=== PATIENT | male | born 1960 | race Caucasian/White ===

== ENCOUNTER → 2017-11-30 | Outpatient (CLI) | payer BC, OTHER ==
[~2017-11-30] MED LIST: RECEIVED CONTRAST (Hold Metformin) IV SCH
[2017-11-30 10:15] LABS: BUN/CREATININE RATIO 16; CREATININE SERUM 0.89 MG/DL (0.60-1.30); GFR ESTIMATED > 60
[2017-11-30] MEDS: CATHETER FLUSH 10 ML SYR IV PRN (10:37)
[2017-11-30] MEDS: NS 250 ML (IVPB) BAG IV ONE (10:37)
[2017-11-30] MEDS: IOHEXOL 350 MG/ML 150 ML (OMNIPAQUE 350) VIAL IV ONE (10:37)
--- NOTE | 2017-11-30 11:41 | Diagnostic Imaging Report ---
PROCEDURE: CT angiography of the abdomen and chest with and without contrast. TECHNIQUE: After intravenous administration of contrast, thin section axial CT angiography of the abdomen and chest were obtained. Multiple MIP reformats were provided. INDICATION: Anterior chest wall pain, hypertension and bradycardia. COMPARISON: No prior CT chest study is available for comparison. CT ANGIOGRAM CHEST: The thoracic aorta is normal caliber. No aneurysm is seen. No dissection is identified. The pulmonary arterial system is without thromboembolism. No filling defects are seen. No pericardial or pleural fluid is identified. No axillary, hilar or mediastinal lymphadenopathy is identified. There is a 5 mm nodule in the right middle lobe, nonspecific. Remainder of the lung ritter appear to be fairly clear apart from a tiny subpleural nodule 4 mm. There is also a 5 mm subpleural nodule in the lingula. IMPRESSION: 1. No evidence of thoracic aortic aneurysm or dissection. No pulmonary embolism is seen. 2. Small nonspecific pulmonary nodules. Followup CT chest in 4-6 months is recommended to confirm stability. CT ANGIOGRAM ABDOMEN: The liver demonstrates generalized low density consistent with hepatic steatosis. No discrete liver mass is identified. The pancreas and spleen are unremarkable. No adrenal masses detected. There are hyperdensities within both kidneys, suggestive of nonobstructing calculi. No hydronephrosis is seen. Aorta is non-aneurysmal. No aortic dissection is seen. There is no central retroperitoneal or mesenteric lymphadenopathy. The small and large bowel loops are normal caliber. There is no ascites. IMPRESSION: 1. Hepatic steatosis. 2. Nonobstructing bilateral nephrolithiasis. 3. No evidence of abdominal aortic aneurysm or dissection. Dictated by: Dictated on workstation # [id number]
== END ==
LOC: RAD 09:40
PROVIDERS: ATTEND Physician Assistant
DX: R91.8 Other nonspecific abnormal finding of lung field (principal); K76.0 Fatty (change of) liver, not elsewhere classified; N20.0 Calculus of kidney; I10 Essential (primary) hypertension; G47.33 Obstructive sleep apnea (adult) (pediatric); E66.01 Morbid (severe) obesity due to excess calories; R00.1 Bradycardia, unspecified; R07.89 Other chest pain
CPT/HCPCS: 36415; 71275; 74175; 82565; 84520

== ENCOUNTER 2018-03-22 11:56 | Day surgery (SDC) | payer BC ==
[~2018-03-22] VITALS: Ht 182.9 cm; Wt 149.3 kg
[2018-03-22] VITALS (8 sets, daily range): BP systolic 132–179; BP diastolic 79–110
[2018-03-22] MEDS ORDERED: NITROGLYCERIN 0.4 MG SL TABS BTL 25'S SL ONE (12:05)
[2018-03-22] MEDS ORDERED: ASPIRIN 81 MG CHEW (CHILDREN'S ASA) ONE (12:05)
[2018-03-22 12:26] LABS: BASOPHILS % (AUTO) 0 % (0-10); EOSINOPHILS # (AUTO) 0.2 10^3/uL (0.0-0.3); EOSINOPHILS % (AUTO) 2 % (0-10); HEMATOCRIT 42 % (40-54); HEMOGLOBIN 14.6 G/DL (13.3-17.7); LYMPHOCYTES # (AUTO) 2.7 X 10^3 (1.0-4.0); LYMPHOCYTES % (AUTO) 31 % (12-44); MEAN CORPUSCULAR HEMOGLOBIN 30 PG (25-34); MEAN CORPUSCULAR HGB CONC 34 G/DL (32-36); MEAN CORPUSCULAR VOLUME 88 FL (80-99); MEAN PLATELET VOLUME 9.8 FL (7.4-10.4); MONOCYTES # (AUTO) 0.6 X 10^3 (0.0-1.0); MONOCYTES % (AUTO) 7 % (0-12); NEUTROPHILS # (AUTO) 5.3 X 10^3 (1.8-7.8); NEUTROPHILS % (AUTO) 60 % (42-75); PLATELET COUNT 279 10^3/uL (130-400); RED BLOOD COUNT 4.84 10^6/uL (4.35-5.85); RED CELL DISTRIBUTION WIDTH 13.4 % (10.0-14.5); WHITE BLOOD COUNT 8.7 10^3/uL (4.3-11.0)
[2018-03-22] MEDS ORDERED: ASPIRIN 81 MG CHEW (CHILDREN'S ASA) PO ONE (12:30)
[2018-03-22] MEDS ORDERED: NITROGLYCERIN 0.4 MG SL TABS BTL 25'S SL PRN ×2 (12:30→16:30)
[2018-03-22 12:42] LABS: PROTHROMBIN TIME PATIENT 13.1 SEC (12.2-14.7)
[2018-03-22 12:49] LABS: ALANINE AMINOTRANSFERASE 29 U/L (0-55); ALBUMIN 4.5 GM/DL (3.2-4.5); ALKALINE PHOSPHATASE 59 U/L (40-136); BILIRUBIN,TOTAL 0.5 MG/DL (0.1-1.0); BUN/CREATININE RATIO 14; CALCIUM 10.3 MG/DL (8.5-10.1); CARBON DIOXIDE 26 MMOL/L (21-32); CHLORIDE 104 MMOL/L (98-107); CREATININE SERUM 1.08 MG/DL (0.60-1.30); GFR ESTIMATED > 60; GLUCOSE 100 MG/DL (70-105); MAGNESIUM 2.3 MG/DL (1.8-2.4); POTASSIUM 3.7 MMOL/L (3.6-5.0); SODIUM 140 MMOL/L (135-145); TOTAL PROTEIN 7.9 GM/DL (6.4-8.2)
[2018-03-22 12:57] LABS: MYOGLOBIN SERUM 66.5 NG/ML (10.0-92.0)
--- NOTE | 2018-03-22 13:04 | Diagnostic Imaging Report ---
INDICATION: Chest pain and diaphoresis with shortness of breath. COMPARISON: No prior studies are available for comparison. FINDINGS: The heart size is normal. The pulmonary vascularity is unremarkable. The lungs are clear. No infiltrate, effusion or pneumothorax is detected. IMPRESSION: No acute cardiopulmonary process is detected. Dictated by: Dictated on workstation # [id number]
--- NOTE | 2018-03-22 13:10 | ED Chest Pain ---
General Chief Complaint: Chest Pain Stated Complaint: CHEST PAIN Nursing Triage Note: Pt arrives to the ED Room #4 c/o chest pain. Pt is diaphoretic and SOB. Pt states that the pain feels like "someone punched me straight in the heart, its tight pressure". Pt states that he had pain this morning at 0900 and took a baby aspirin. Nursing Sepsis Screen: No Definite Risk Source: patient, old records Exam Limitations: no limitations History of Present Illness Date Seen by Provider: Mar 22, 2018 Time Seen by Provider: 12:07 Initial Comments This 57-year-old gentleman presents to the emergency room with complaints of chest pain in the left central chest that started around 09:00. 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 He had been carrying a ladder on some stairs and climbing up and down a ladder. Pain became severe between 11:00 and 11:30. He became intensely diaphoretic at that time. He rated his pain as 6/10 at its worst. It was 2/10 at the time of assessment. Pain improved with rest. He took aspirin 81 mg prior to arrival. He complained of some slight blurry vision and swelling in his ears as well. He denies any change in pain with deep inspiration. He has no known history of coronary artery disease but does have a strong family history. He has had at least 3 first-degree relatives of heart disease around age 60. He has a remote smoking history. He is also obese and hypertensive. He has sleep apnea. Patient had a CT angiogram performed November 30. Pulmonary nodules were noted and a 4-6 month follow-up was recommended. Dr. Yanez is his primary social media community manager. Dr. Estrada previously had planned to do a stress test but patient did not follow through because of loss of insurance. Allergies and Home Medications Allergies Coded Allergies: No Allergy Information Available (Unverified , 11/30/17) Patient Home Medication List Home Medication List Reviewed: Yes Review of Systems Review of Systems Constitutional: diaphoresis EENTM: See HPI Respiratory: No Symptoms Reported Cardiovascular: See HPI Gastrointestinal: No Symptoms Reported Genitourinary: No Symptoms Reported Musculoskeletal: no symptoms reported Skin: no symptoms reported Psychiatric/Neurological: No Symptoms Reported Endocrine: No Symptoms Reported Hematologic/Lymphatic: No Symptoms Reported Past Qajshze-Rdxidb-Hypkni Hx Patient Social History Alcohol Use: Denies Use Recreational Drug Use: No Smoking Status: Former Smoker Type Used: Cigarettes 2nd Hand Smoke Exposure: No Recent Foreign Travel: No Contact w/Someone Who Travel: No Recent Infectious Disease Expo: No Recent Hopitalizations: No Physical Abuse: No Sexual Abuse: No Mistreated: No Fear: No Seasonal Allergies Seasonal Allergies: No Past Medical History Surgeries: No Respiratory: No Cardiac: Yes Hypertension Neurological: No Genitourinary: No Gastrointestinal: No Musculoskeletal: No Endocrine: No HEENT: No Cancer: No Psychosocial: No Integumentary: No Blood Disorders: No Family Medical History Reviewed and Corrections made Heart Disease, CAD Over 55 Years Old Physical Exam Vital Signs Vital Signs - First Documented Capillary Refill : Less Than 3 Seconds Height, Weight, BMI Height: 6'" Weight: 226lbs. oz. 102.400555zw; BMI Method:Stated General Appearance: No Apparent Distress, WD/WN, Obese HEENT: PERRL/EOMI, Normal ENT Inspection Neck: Normal Inspection Respiratory: Lungs Clear, Normal Breath Sounds, No Accessory Muscle Use, No Respiratory Distress, Other (chest slightly tender just to the left of the lower sternum) Cardiovascular: Regular Rate, Rhythm, No Murmur, Other (slight pedal edema) Gastrointestinal: Normal Bowel Sounds, Non Tender, Soft Extremity: Normal Capillary Refill, Non Tender, No Calf Tenderness, Pedal Edema (slight), Other (negative home and) Neurologic/Psychiatric: Alert, Oriented x3, No Motor/Sensory Deficits, Normal Mood/Affect, trustee of estate II-XII Norm as Tested Skin: Normal Color, Diaphoresis Progress/Results/Core Measures Results/Orders Lab Results Laboratory Tests Test 03/22/18 12:10 Range/Units White Blood Count 8.7 4.3-11.0 10^3/uL Red Blood Count 4.84 4.35-5.85 10^6/uL Hemoglobin 14.6 13.3-17.7 G/DL Hematocrit 42 40-54 % Mean Corpuscular Volume 88 80-99 FL Mean Corpuscular Hemoglobin 30 25-34 PG Mean Corpuscular Hemoglobin Concent 34 32-36 G/DL Red Cell Distribution Width 13.4 10.0-14.5 % Platelet Count 279 130-400 10^3/uL Mean Platelet Volume 9.8 7.4-10.4 FL Neutrophils (%) (Auto) 60 42-75 % Lymphocytes (%) (Auto) 31 12-44 % Monocytes (%) (Auto) 7 0-12 % Eosinophils (%) (Auto) 2 0-10 % Basophils (%) (Auto) 0 0-10 % Neutrophils # (Auto) 5.3 1.8-7.8 X 10^3 Lymphocytes # (Auto) 2.7 1.0-4.0 X 10^3 Monocytes # (Auto) 0.6 0.0-1.0 X 10^3 Eosinophils # (Auto) 0.2 0.0-0.3 10^3/uL Basophils # (Auto) 0.0 0.0-0.1 10^3/uL Prothrombin Time 13.1 12.2-14.7 SEC INR Comment 1.0 0.8-1.4 Activated Partial Thromboplast Time 28 24-35 SEC D-Dimer 0.53 H 0.00-0.49 UG/ML Sodium Level 140 135-145 MMOL/L Potassium Level 3.7 3.6-5.0 MMOL/L Chloride Level 104 98-107 MMOL/L Carbon Dioxide Level 26 21-32 MMOL/L Anion Gap 10 5-14 MMOL/L Blood Urea Nitrogen 15 7-18 MG/DL Creatinine 1.08 0.60-1.30 MG/DL Estimat Glomerular Filtration Rate > 60 BUN/Creatinine Ratio 14 Glucose Level 100 70-105 MG/DL Calcium Level 10.3 H 8.5-10.1 MG/DL Corrected Calcium 9.9 8.5-10.1 MG/DL Magnesium Level 2.3 1.8-2.4 MG/DL Total Bilirubin 0.5 0.1-1.0 MG/DL Aspartate Amino Transf (AST/SGOT) 20 5-34 U/L Alanine Aminotransferase (ALT/SGPT) 29 0-55 U/L Alkaline Phosphatase 59 40-136 U/L Myoglobin 66.5 10.0-92.0 NG/ML Troponin I < 0.30 <0.30 NG/ML Total Protein 7.9 6.4-8.2 GM/DL Albumin 4.5 3.2-4.5 GM/DL My Orders Orders - MENA GARG MD Nitroglycerin 0.4 Mg Btl 25's (Nitrostat (03/22/18 12:05) Aspirin Chewable Tablet (Baby Aspirin Ch (03/22/18 12:05) Cbc With Automated Diff (03/22/18 12:17) Magnesium (03/22/18 12:17) Ekg Tracing (03/22/18 12:17) Cardiac Profile 1 (03/22/18 12:17) Comprehensive Metabolic Panel (03/22/18 12:17) Myoglobin Serum (03/22/18 12:17) Protime With Inr (03/22/18 12:17) Partial Thromboplastin Time (03/22/18 12:17) O2 (03/22/18 12:17) Monitor-Rhythm Ecg Trace Only (03/22/18 12:17) Lipid Panel (03/23/18 06:00) Aspirin Chewable Tablet (Baby Aspirin Ch (03/22/18 12:30) Nitroglycerin 0.4 Mg Btl 25's (Nitrostat (03/22/18 12:30) Saline Lock/Iv-Start (03/22/18 12:17) Chest Pa/Lat (2 View) (03/22/18 12:17) Fibrin Degradation Products (03/22/18 13:21) Ct Angio Chest W (03/22/18 13:57) Iohexol Injection (Omnipaque 350 Mg/Ml 1 (03/22/18 14:00) Ns (Ivpb) (Sodium Chloride 0.9%) (03/22/18 14:00) Pharmacy Communication (Pharmacy Communi (03/22/18 13:59) Medications Given in ED Current Medications Medications Dose Ordered Sig/Ever Route Start Time Stop Time Status Last Admin Dose Admin Aspirin 243 mg ONCE ONCE PO 03/22/18 12:30 03/22/18 12:31 DC 03/22/18 12:10 243 MG Iohexol 150 ml ONCE ONCE IV 03/22/18 14:00 03/22/18 14:02 DC 03/22/18 14:04 130 ML Sodium Chloride 250 ml ONCE ONCE IV 03/22/18 14:00 03/22/18 14:02 DC 03/22/18 14:04 80 ML Vital Signs/I&O 03/22/18 03/22/18 03/22/18 11:57 11:57 11:57 Temp 98.4 Pulse 86 Resp 20 B/P (MAP) 154/92 (112) Pulse Ox 94 96 O2 Delivery Room Air Nasal Cannula Room Air O2 Flow Rate 3.0 3.00 Blood Pressure Mean: 112 Progress Progress Note #1: Time: 13:28 Progress Note Patient reported improvement in chest pain with nitroglycerin. When he got up to the wheelchair to go to radiology, the chest pain intensified again. He received a second nitroglycerin and chest pain improved again. He has been rating his pain around 1-2/10. Dr. Henderson presented to the emergency room to assess the patient. He agrees with admission. If troponin remains negative and chest pain control, stress test will be arranged as an outpatient. If chest pain is uncontrolled or troponin is positive, cardiac catheterization will be arranged. He requested a d-dimer which is pending. Progress Note #2: Time: 14:51 Progress Note D-dimer was slightly elevated. CT angiogram was ordered and results were negative. Pulmonary nodules are stable. Initial ECG Impression Date: Mar 22, 2018 Initial ECG Impression Time: 11:59 Initial ECG Rate: 82 Initial ECG Rhythm: Normal Sinus Initial ECG Intervals: Normal Comment Normal sinus rhythm with no ST elevation or depression. No abnormal intervals or axis deviation. Diagnostic Imaging Diagonstic Imaging: Xray Plain Films/CT/US/NM/MRI: chest Comments Chest x-ray viewed by me and report reviewed. See report below: NAME: ANGIE MUELLER [facility] REC#: [id number] PT STATUS: REG ER : 1960 PHYSICIAN: MENA GARG MD ADMIT DATE: 03/22/18/ER Draft Date of Exam:03/22/18 CHEST PA/LAT (2 VIEW) INDICATION: Chest pain and diaphoresis with shortness of breath. COMPARISON: No prior studies are available for comparison. FINDINGS: The heart size is normal. The pulmonary vascularity is unremarkable. The lungs are clear. No infiltrate, effusion or pneumothorax is detected. IMPRESSION: No acute cardiopulmonary process is detected. Dictated on workstation # [id number] Dict: 03/22/18 1302 Trans: 03/22/18 1303 [facility] [id number] Interpreted by: MELLISSA SORIANO MD Departure Communication (Admissions) Time/Spoke to Admitting Phy: 14:47 Dr. Ty Time/Spoke to Consulting Phy: 13:15 Dr. Henderson Impression Primary Impression: Chest pain Qualified Codes: R07.9 - Chest pain, unspecified Additional Impressions: Hypertension Qualified Codes: I10 - Essential (primary) hypertension Pulmonary nodules Disposition: ADMITTED INPATIENT Condition: Improved Admissions Decision to Admit Reason: Admit from ER (General) Decision to Admit/Date: Mar 22, 2018 Time/Decision to Admit Time: 12:15 Departure-Patient Inst. Referrals: FRANCIS PERRY (PCP/Family) Primary Care Physician MENA GARG MD Mar 22, 2018 13:10
[2018-03-22] MEDS ORDERED: IOHEXOL 350 MG/ML 150 ML (OMNIPAQUE 350) VIAL IV ONE (14:00)
[2018-03-22] MEDS ORDERED: NS 250 ML (IVPB) BAG IV ONE (14:00)
--- NOTE | 2018-03-22 14:31 | Diagnostic Imaging Report ---
PROCEDURE: CT angiography of the chest with contrast. TECHNIQUE: Multiple contiguous axial images were obtained through the chest after uneventful bolus administration of intravenous contrast. Reconstructed CTA MIP acquisitions were also performed. INDICATION: Chest pain. Comparison is made with prior CT angiogram of the chest from 11/30/2017. Evaluation of the pulmonary arterial system is without evidence of thromboembolism. No filling defects are seen within central, lobar or segmental branches. The thoracic aorta is normal caliber. No dissection is seen. No pericardial or pleural fluid is identified. No axillary lymphadenopathy is seen. No mediastinal or hilar lymphadenopathy is detected. A 4 mm nodule right upper lobe is stable when compared to prior exam. Subpleural nodule in the lingula is also stable measuring 6 mm. No infiltrates are seen. Upper abdomen demonstrates hepatic steatosis. IMPRESSION: 1. No evidence of pulmonary embolism or thoracic aortic dissection. 2. Stable bilateral pulmonary nodules. Additional followup in 6 months is recommended. 3. Hepatic steatosis. Dictated by: Dictated on workstation # [id number]
--- NOTE | 2018-03-22 15:15 | Consultation-Cardiology ---
HPI-Cardiology Cardiology Consultation: Date of Consultation 03/22/18 Date of Admission Attending Physician Admitting Physician Jade Murcia Consulting Physician Zohreh HENDERSON MD HPI: Time Seen by Provider: 13:00 Chief Complaint: Chest pain This is a 57 year old male patient who previously followed with Dr Estrada. Apparently Dr Estrada wanted to perform stress test but patient could not follow up due to no insurance. He presents with severe chest pain 10/10 this morning which lasted for a couple of hours and improved with two NTG. CP is substernal with no shortness of breath. Patient denies DM, active smoking but has HTN, lipids and family h/o premature CAD. He is also obese and has JEMAL. No radiation , worse with exertion. Review of Systems-Cardiology Review of Systems Constitutional: As described under HPI; No As described under HPI, No no symptoms reported, No chills, No fever, No lightheadedness Eyes: No As described under HPI, No no symptoms reported, No blindness, No blurred vision, No contact lenses, No drainage, No decreased acuity, No foreign body sensation, No pain, No vision change Ears/Nose/Throat: No As described under HPI, No no symptoms reported, No chronic hearing loss, No ear discharge, No ear pain, No nasal drainage, No ulcerations Respiratory: No no symptoms reported; As described under HPI; No As described under HPI, No cough, No orthopnea, No shortness of breath, No SOB with excertion Cardiovascular: No no symptoms reported; As described under HPI; No As described under HPI; chest pain; No edema, No irregular heart rate, No lightheadedness, No palpitations Gastrointestinal: No no symptoms reported, No As described under HPI, No abdomen distended, No abdominal pain, No blood streaked bowels, No constipation , No diarrhea, No nausea, No vomiting, No stool coloration changes Genitourinary: No As described under HPI, No burning, No dysuria, No discharge , No frequency, No flank pain, No hematuria, No urgency Skin: No rash, No skin related problems, No ulcerations Psychiatric/Neurological: No anxiety, No depression, No seizure, No focal weakness, No syncope Hematologic: No bleeding abnormalities XNA-Prdogx-Iglywb Hx Patient Social History Alcohol Use: Denies Use Recreational Drug Use: No Smoking Status: Former Smoker Type Used: Cigarettes 2nd Hand Smoke Exposure: No Recent Foreign Travel: No Recent Infectious Disease Expo: No Hospitalization with Isolation: Denies Past Medical History PMH As described under Assessment. Allergies and Home Medications Allergies Coded Allergies: No Allergy Information Available (Unverified , 11/30/17) Patient Home Medication List Home Medication List Reviewed: Yes Physical Exam-Cardiology Physical Exam Vital Signs/I&O 03/22/18 03/22/18 03/22/18 11:57 11:57 11:57 Temp 98.4 Pulse 86 Resp 20 B/P (MAP) 154/92 (112) Pulse Ox 94 96 O2 Delivery Room Air Nasal Cannula Room Air O2 Flow Rate 3.0 3.00 Capillary Refill : Less Than 3 Seconds Constitutional: appears stated age, AAO x 3; No apparent distress; well- developed, well-nourished HEENT: PERRL; No normal ENT inspection, No TMs normal, No pharynx normal, No scleral icterus (R), No scleral icterus (L), No pale conjunctivae (R), No pale conjunctivae (L), No photophobia, No TM abnormal (R), No TM abnormal (L), No pharyngeal erythema, No tonsillar exudate, No other, No discharge, No EOMI; hearing is well preserved; No hard of hearing; oral hygience is good; No ulceration, No xanthelasmas are seen Neck: No non-tender, No full range of motion, No supple, No normal inspection, No carotid bruit, No limited range of motion, No lymphadenopathy (R), No lymphadenopathy (L), No tender lateral, No tender midline, No thyromegaly, No other; carotid pulses are 2 + bilaterally; No with good upstrokes Respiratory: No accessory muscle use, No respiratory distress, No chest tender , No chest expansion is symmetric; chest is bilaterally symmetric; No lungs clear to percussion; lungs clear to auscultation; No crackles, No rhonchi, No rales, No stridor, No wheezing, No pleural rub, No other Cardiovascular: regular rate-rhythm; No irregularly irregular, No extra beats, No parasternal heave is noted, No JVD, No edema, No bradycardia, No tachycardia , No point of maximal impulse, No cardiac thrills are palpable; S1 and S2; No gallop/S3, No gallop/S4, No diastolic murmur, No systolic murmur, No friction rub, No click, No other Gastrointestinal: No tender, No soft, No round, No distended, No pulsatile mass , No organomegaly, No guarding, No rebound, No tenderness, No hernia, No mass, No audible bowel sounds, No abnormal bowel sounds, No abdominal bruits, No spleenomegaly, No other Rectal: deferred Extremities: No normal range of motion, No non-tender, No normal inspection, No pedal edema, No calf tenderness, No normal capillary refill, No pelvis stable , No calf tenderness, No inflammation, No pedal edema, No slow capillary refill , No swelling, No other, No abrasion, No clubbing, No cyanosis, No ecchymosis, No laceration, No no lower extremity edema bilateral, No significant edema, No tenderness, No wound Neurologic/Psychiatric: no motor/sensory deficits, alert, normal mood/affect, oriented x 3, power is 5/5 both on sides Skin: No normal color, No warm/dry, No cyanosis, No cool, No diaphoresis, No damp, No ecchymosis, No jaundice, No mottled, No pallor, No rash, No tattoos/ piercings, No ulcerations, No rash on exposed areas, No ulcerations on exposed areas, No other Data Review Labs Laboratory Tests 03/22/18 12:10: White Blood Count 8.7, Red Blood Count 4.84, Hemoglobin 14.6, Hematocrit 42, Mean Corpuscular Volume 88, Mean Corpuscular Hemoglobin 30, Mean Corpuscular Hemoglobin Concent 34, Red Cell Distribution Width 13.4, Platelet Count 279, Mean Platelet Volume 9.8, Neutrophils (%) (Auto) 60, Lymphocytes (%) (Auto) 31, Monocytes (%) (Auto) 7, Eosinophils (%) (Auto) 2, Basophils (%) (Auto) 0, Neutrophils # (Auto) 5.3, Lymphocytes # (Auto) 2.7, Monocytes # (Auto) 0.6, Eosinophils # (Auto) 0.2, Basophils # (Auto) 0.0, Prothrombin Time 13.1, INR Comment 1.0, Activated Partial Thromboplast Time 28, D-Dimer 0.53H, Sodium Level 140, Potassium Level 3.7, Chloride Level 104, Carbon Dioxide Level 26, Anion Gap 10, Blood Urea Nitrogen 15, Creatinine 1.08, Estimat Glomerular Filtration Rate > 60, BUN/Creatinine Ratio 14, Glucose Level 100, Calcium Level 10.3H, Corrected Calcium 9.9, Magnesium Level 2.3, Total Bilirubin 0.5, Aspartate Amino Transf (AST/SGOT) 20, Alanine Aminotransferase (ALT/SGPT) 29, Alkaline Phosphatase 59, Myoglobin 66.5, Troponin I < 0.30, Total Protein 7.9, Albumin 4.5 ECG Impression ECG Initial ECG Rhythm: Normal Sinus Initial ECG Impression: Normal A/P-Cardiology Assessment/Admission Diagnosis Chest pain, Positive D dimer, Pulmonary nodule Plan Chest pain - serial troponin. EKG does not show any major ST-T wave abnormalities. Significant improvement with NTG. If patient develops recurrent CP, Cath will be recommended. Otherwise, if serial trop negative, he will be dced to follow up with Dr Estrada for early Nuclear stress test. I will perform Echocardiogram. Positive DDimer- CTA negative. Pulmonary nodule - Follow up with CT. Thank you for your consultation. Please call me if you have any questions. Jose Henderson MD, FACP, FACC, FSCAI, FHRS, CCDS Interventional Cardiology Cardiac Electrophysiology Vascular Medicine and Endovascular Interventions Clinical Quality Measures AMI/AHF: ASA po Prior to arrival: Yes (Pt took 81mg Baby Aspirin) Zohreh HENDERSON MD Mar 22, 2018 15:15
[2018-03-22] MEDS ORDERED: morphine INJ 10 MG/ML 1ML (SYR OR VIAL) IV PRN (16:30)
[2018-03-22] MEDS ORDERED: CATHETER FLUSH 10 ML SYR IV PRN (16:30)
--- NOTE | 2018-03-22 17:34 | History & Physical-Hospitalist ---
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 He began having right-sided chest pain associated with profuse diaphoresis and dizziness. The patient sat down and then decided to go to the emergency room. He was given a nitroglycerin which resolved the pain although the pain RE- occurred in about an hour. At the time of my interview he is without pain and has no complaints. He notes he has never had pain like this before. He does have a long-standing history of hypertension and has been followed by Dr. Yanez for that. Source: patient Exam Limitations: no limitations Date Seen 03/22/18 Time Seen by Provider: 17:30 Attending Physician Marichuy Ty MD PCP Jade Murcia Referring Physician Date of Admission Mar 22, 2018 at 15:08 Home Medications & Allergies Home Medications Reviewed patient Home Medication Reconciliation performed by pharmacy medication reconciliations security technician and/or nursing. Patients Allergies have been reviewed. Allergies Allergies Coded Allergies No Allergy Information Available (Unverified11/30/17) Past Stjteeg-Zshsdr-Nmebvz Hx Past Med/Social Hx: Reviewed Nursing Past Med/Soc Hx Patient Social History Marrital Status: Number of living children: 4 Employed/Student: employed Alcohol Use: Denies Use Recreational Drug Use: No Smoking Status: Former Smoker Former Smoker, Quit: Mar 22, 1994 Type Used: Cigarettes 2nd Hand Smoke Exposure: No Physical Abuse Screen: No Sexual Abuse: No Recent Foreign Travel: No Contact w/other who traveled: No Recent Hopitalizations: No Recent Infectious Disease Expo: No Immunizations Up To Date Pediatric: Yes Seasonal Allergies Seasonal Allergies: No Past Medical History Respiratory: Sleep Apnea Currently Using CPAP: Yes Currently Using BIPAP: No Cardiac: Hypertension Genitourinary: Kidney Stones History of Blood Disorders: No Family History Reviewed and Corrections made Myocardial infarction 19 FATHER ( of mi age 52) G8 BROTHER ( of mi 57) G8 SISTER ( OF ID AGE 62) G8 SISTER ( OF ID AT AGE 58) Neoplasm 19 MOTHER (pancreatic cancer) Heart Disease, CAD Over 55 Years Old Review of Systems Constitutional: see HPI EENTM: blurred vision Respiratory: no symptoms reported Cardiovascular: chest pain Gastrointestinal: no symptoms reported Genitourinary: no symptoms reported Musculoskeletal: no symptoms reported Skin: dryness Psychiatric/Neurological: No Symptoms Reported Physical Exam Physical Exam Vital Signs Vital Signs - First Documented Capillary Refill : Less Than 3 Seconds Height, Weight, BMI Height: 6'0.00" Weight: 329lbs. 1.9oz. 149.788304uv; 44.6 BMI Method:Stated General Appearance: No Apparent Distress, WD/WN, Obese HEENT: Normal ENT Inspection Neck: Normal Inspection, Non Tender, Limited Range of Motion, Other (Short with increased diameter) Respiratory: Chest Non Tender, Lungs Clear, Normal Breath Sounds, No Accessory Muscle Use, No Respiratory Distress Cardiovascular: Regular Rate, Rhythm, No Edema, No Gallop, No JVD, No Murmur, Normal Peripheral Pulses Gastrointestinal: Normal Bowel Sounds, No Organomegaly, No Pulsatile Mass, Non Tender, Soft Rectal: Deferred Back: Normal Inspection, No CVA Tenderness, No Vertebral Tenderness Extremity: Normal Capillary Refill, Normal Inspection, Normal Range of Motion, Non Tender, No Calf Tenderness Neurologic/Psychiatric: Alert, Oriented x3, No Motor/Sensory Deficits, Normal Mood/Affect, medical claims representative II-XII Norm as Tested Skin: Normal Color, Warm/Dry Results Results/Procedures Labs Laboratory Tests 03/22/18 12:10 Patient resulted labs reviewed. Imaging: Reviewed Imaging Report Assessment/Plan Admission Diagnosis Chest pain in patient high risk for heart disease. Hypertension History nephrolithiasis Obstructive sleep apnea Morbid obesity with a BMI of 44 Pulmonary nodules stable since previous exam Low positive d-dimer Plan to not observe overnight continue aspirin check a fasting lipid profile and discharge with outpatient follow-up with Dr. Yanez Admission Status: Observation Clinical Quality Measures AMI/AHF: ASA po Prior to arrival: Yes (Pt took 81mg Baby Aspirin) DVT/VTE Risk/Contraindication: Risk Factor Score Per Nursin RFS Level Per Nursing on Admit: 2=Moderate Copy Copies To 1: NIURKA CHING MD, KATHLEEN M MD Mar 22, 2018 5:34 pm
[2018-03-22] MEDS ORDERED: AMLO10TA6 PO (17:53)
[2018-03-22] MEDS ORDERED: LOSA1TAB23 PO (17:53)
[2018-03-22] MEDS ORDERED: CARV12.53 PO (17:53)
[2018-03-22] MEDS ORDERED: ASPI-586 PO (17:56)
[2018-03-22] MEDS: CATHETER FLUSH 10 ML SYR IV SCH (21:27)
[2018-03-23] VITALS (13 sets, daily range): BP systolic 124–182; BP diastolic 67–92
[2018-03-23] MEDS: CATHETER FLUSH 10 ML SYR IV SCH ×3 (06:29→19:27)
[2018-03-23 06:57] LABS: CHOLESTEROL 183 MG/DL (< 200); HDL CHOLESTEROL 38 MG/DL (40-60); TRIGLYCERIDES 115 MG/DL (<150); VLDL CHOLESTEROL 23 MG/DL (5-40)
[2018-03-23] MEDS ORDERED: ASPIRIN E.C. 81 MG (ECOTRIN) TAB PO SCH (09:00)
[2018-03-23] MEDS ORDERED: PATIENT MAY USE OWN MEDS, ALL MC SCH (10:45)
--- NOTE | 2018-03-23 11:40 | Progress Note-Hospitalist ---
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 He began having right-sided chest pain associated with profuse diaphoresis and dizziness. The patient sat down and then decided to go to the emergency room. He was given a nitroglycerin which resolved the pain although the pain RE- occurred in about an hour. At the time of my interview he is without pain and has no complaints. He notes he has never had pain like this before. He does have a long-standing history of hypertension and has been followed by Dr. Yanez for that. Subjective/Events-last exam Patient had chest pain again overnight when he wasn't doing anything requiring nitroglycerin to get it to subside. Family history is again reviewed; his blood pressures going up this morning since he hadn't had some of his medications. Review of Systems Cardiovascular: Chest Pain Objective Exam Vital Signs Vital Signs Date Time Temp Pulse Resp B/P (MAP) Pulse Ox O2 Delivery O2 Flow Rate FiO2 03/23/18 08:00 98.1 55 20 168/91 (116) 96 Room Air 03/22/18 11:57 3.00 Capillary Refill : Less Than 3 Seconds General Appearance: No Apparent Distress HEENT: Normal ENT Inspection Neck: Normal Inspection, Non Tender, Supple, Other (Full) Respiratory: Chest Non Tender, Lungs Clear, Normal Breath Sounds, No Accessory Muscle Use, No Respiratory Distress Cardiovascular: Regular Rate, Rhythm, No Edema, No Gallop, No JVD, No Murmur, Normal Peripheral Pulses, Extra Beats Gastrointestinal: Normal Bowel Sounds, No Organomegaly, Non Tender, Soft Rectal: Deferred Back: Normal Inspection, No CVA Tenderness Extremity: Normal Capillary Refill, Normal Inspection, Normal Range of Motion, Non Tender, No Pedal Edema Neurologic/Psychiatric: Alert, Oriented x3, No Motor/Sensory Deficits, Normal Mood/Affect, bulk tank 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 Imaging: Reviewed Imaging Report Assessment/Plan Assessment and Plan Assess & Plan/Chief Complaint 1. Chest pain consistent with unstable angina-with the multiple risk factors this patient has discussed with who agrees with proceeding to heart catheter 2. Obstructive sleep apnea 3. Pulmonary nodules requiring follow-up Clinical Quality Measures AMI/AHF: ASA po Prior to arrival: Yes (Pt took 81mg Baby Aspirin) DVT/VTE Risk/Contraindication: Risk Factor Score Per Nursin RFS Level Per Nursing on Admit: 2=Moderate MATHEUS PERRY MD Mar 23, 2018 11:40 am
[2018-03-23] MEDS ORDERED: NS IV 1000 ML 1,000 ML ONE (12:21)
[2018-03-23] MEDS ORDERED: LIDOCAINE 1% INJ 20 ML 20 ML VIAL ONE (12:21)
[2018-03-23] MEDS ORDERED: NS IV 1000 ML 2,000 ML ONE (12:26)
[2018-03-23] MEDS ORDERED: HEParin 1000 UNIT/ML (10ML VIAL) FOR BOLUS ONE (12:26)
[2018-03-23] MEDS ORDERED: MIDAZOLAM 5 MG/5 ML (VERSED) VIAL ONE (12:35)
[2018-03-23] MEDS ORDERED: fentaNYL INJECTION 100 MCG/2 ML AMP ONE (12:35)
--- NOTE | 2018-03-23 13:05 | Cardiology Progress Note ---
Cardiology SOAP Progress Note Subjective: Chest pain overnight which resolve with nitroglycerin. Objective: I&O/Vital Signs 03/23/18 03/23/18 03/23/18 03:30 07:00 08:00 Temp 98.4 98.1 Pulse 55 60 55 Resp 18 20 B/P (MAP) 138/90 (106) 168/91 (116) Pulse Ox 95 96 O2 Delivery Room Air Room Air 03/23/18 00:00 Intake Total 590 ml Output Total 850 ml Balance -260 ml Weight (Pounds): 329 Weight (Ounces): 1.9 Weight (Calculated Kilograms): 149.984223 Constitutional: appears stated age, AAO x 3; No apparent distress; well- developed, well-nourished Respiratory: No accessory muscle use, No respiratory distress, No chest tender , No chest expansion is symmetric; chest is bilaterally symmetric; No lungs clear to percussion; lungs clear to auscultation; No crackles, No rhonchi, No rales, No stridor, No wheezing, No pleural rub, No other Cardiovascular: regular rate-rhythm; No irregularly irregular, No extra beats, No parasternal heave is noted, No JVD, No edema, No bradycardia, No tachycardia , No point of maximal impulse, No cardiac thrills are palpable; S1 and S2; No gallop/S3, No gallop/S4, No diastolic murmur, No systolic murmur, No friction rub, No click, No other Gastrointestional: No tender, No soft, No round, No distended, No pulsatile mass, No organomegaly, No guarding, No rebound, No tenderness, No hernia, No mass, No audible bowel sounds, No abnormal bowel sounds, No abdominal bruits, No spleenomegaly, No other Extremities: No normal range of motion, No non-tender, No normal inspection, No pedal edema, No calf tenderness, No normal capillary refill, No pelvis stable , No calf tenderness, No inflammation, No pedal edema, No slow capillary refill , No swelling, No other, No abrasion, No clubbing, No cyanosis, No ecchymosis, No laceration, No no lower extremity edema bilateral, No significant edema, No tenderness, No wound Neurologic/Psychiatric: no motor/sensory deficits, alert, normal mood/affect, oriented x 3, power is 5/5 both on sides Skin: No normal color, No warm/dry, No cyanosis, No cool, No diaphoresis, No damp, No ecchymosis, No jaundice, No mottled, No pallor, No rash, No tattoos/ piercings, No ulcerations, No rash on exposed areas, No ulcerations on exposed areas, No other Results/Procedures: Labs Laboratory Tests 03/22/18 18:05: Troponin I < 0.30 03/23/18 05:58: Triglycerides Level 115, Cholesterol Level 183, LDL Cholesterol Direct 134H, VLDL Cholesterol 23, HDL Cholesterol 38L A/P: Assessment/Dx: Unstable angina, Positive D dimer, Pulmonary nodule Plan: Unstable angina. Troponin 2 is negative. EKG does not show any significant ST -T wave abnormalities. Patient did have recurrent chest pain overnight which resolved with nitroglycerin. The patient does have significant family history. I have discussed at length with the patient and recommended coronary angiography. All the risks and complication were explained in detail including bleeding, vascular damage, PR, stroke and even . Patient accepted all the risks and complication and signed informed consent. Echocardiogram showed normal LV function. Positive DDimer- CTA negative. Pulmonary nodule - Follow up with CT. Thank you for your consultation. Please call me if you have any questions. Jose Henderson MD, FACP, FACC, FSCAI, FHRS, CCDS Interventional Cardiology Cardiac Electrophysiology Vascular Medicine and Endovascular Interventions Clinical Quality Measures AMI/AHF: ASA po Prior to arrival: Yes (Pt took 81mg Baby Aspirin) Zohreh HENDERSON MD Mar 23, 2018 1:05 pm
--- NOTE | 2018-03-23 13:06 | Cardiac Procedure Note-CS/ASA ---
Pre-Procedure Note Pre-Op Procedure Note H&P Reviewed The H&P was reviewed, patient examined and no changes noted. Date H&P Reviewed: Mar 23, 2018 Time H&P Reviewed: 13:06 Conscious Sedation Pre-Proced Time Reviewed: 13:06 ASA Class: 3 Airway Mallampati Classification: (tyonek appropriate class) I. II. III, IV Lungs Heart ASA score ASA 1: a normal healthy patient ASA 2: a patient with a mild systemic disease (mid diabetes, controlled hypertension, obesity ASA 3: a patient with a severe systemic disease that limits activity (angina , COPD, prior Myocardial infarction) ASA 4: a patient with an incapacitating disease that is a constant threat to life (CHF, renal failure) ASA 5: a moribund patient not expected to survive 24 hrs. (ruptured aneurysm) ASA 6: a declared brain patient whose organs are being harvested. For emergent operations, add the letter E after the classification Grade 1 Sedation Plan: Analgesia, Amnesia, Plan communicated to team members, Discussed options with patient/fam, Discussed risks with patient/fam Note The patient is an appropriate candidate to undergo the planned procedure, sedation, and anesthesia. The patient immediately re-assessed prior to indication. Zohreh DELGADILLO MD Mar 23, 2018 1:06 pm
[2018-03-23] MEDS ORDERED: VERAPAMIL 5 MG/2 ML (CALAN) VIAL IV ONE (13:08)
[2018-03-23] MEDS ORDERED: NITRO DRIP 25000 MCG/D5W 250 ML IV ONE (13:08)
[2018-03-23] MEDS ORDERED: PATIENT MAY USE OWN MEDS, ALL PO SCH (13:45)
--- NOTE | 2018-03-23 13:48 | Coronary Angiography Report ---
Coronary Angiography Report DATE OF PROCEDURE: 03/23/18 INDICATION: Unstable Angina, Recurrent chest pain on medical therapy. PREOPERATIVE DIAGNOSIS: Unstable Angina, Recurrent chest pain on medical therapy. POSTOPERATIVE DIAGNOSIS: Patent Epicardial coronary arteries, brief episodes of PAT/PAF. HISTORY: This is a 57 year old gentleman with morbid obesity and significant family history of premature CAD. He presented with prolonged chest pain. Troponin x2 negative, however, the patient had recurrent chest pain overnight which responded to NTG. Therefore, the patient was scheduled for coronary angiography. PROCEDURES PERFORMED: 1.Coronary angiography. 2.Left heart catheterization. 3. Aortic arch angiography. COMPLICATIONS: None. SPECIMENS: None. ESTIMATED BLOOD LOSS: 10 mL ANESTHESIA: Conscious sedation ANTICOAGULATION: IV heparin CONTRAST: 72cc. FLUOROSCOPY: 5 minutes. FLOUROSCOPY DOSE: 967 mgy. PROCEDURE DETAILS: The patient is a 57 male and was brought to the laborer steel handling after informed consent was taken. All the risks and complications were explained in detail; this included the risk of bleeding, vascular damage, stroke , [place] and even . The patient was draped and prepped in the usual sterile fashion. Access was gained in the right radial artery with a 6 [place] sheath. Coronary angiography and left heart catheterization was performed with the [place] catheter. Aortic arch angiography was performed with [place] catheter. FINDINGS: 1.Left main: Patent. 2.LAD: Patent. 3.Left circumflex artery: Patent. 4.RCA: Patent. 5.Left heart catheterization: LV 126/4mmhg, LVEDP 11mmhg, Ao 101/69mmhg. Normal LV fx with no wall motion abnormalities. No gradient across the aortic valve. 6. Aortic arch angiogram: No evidence of dissection or aneurysm. Patent proximal segments of the great arteries including brachiocephalic artery, common carotid artery, left subclavian artery. CONCLUSIONS: Patent epicardial coronary arteries. Normal LV function. Episodes of PAT/PAF. Monitoring required as a outpatient. Jose Henderson MD, FACP, FACC, [facility] Interventional Cardiology Zohreh HENDERSON MD Mar 23, 2018 1:48 pm
[2018-03-23] MEDS: NS IV 1000 ML 1,000 ML IV SCH ×2 (14:31→18:47)
[2018-03-23] MEDS: CARVEDILOL 12.5 MG (COREG) TABLET PO SCH (19:26)
[2018-03-23] MEDS ORDERED: ATORVASTATIN 10 MG (LIPITOR) TABLET PO SCH (21:00)
[2018-03-24] VITALS: BP 144/71
[2018-03-24 04:00] VITALS: BP 153/75
[2018-03-24] MEDS: CATHETER FLUSH 10 ML SYR IV SCH (05:45)
[2018-03-24 08:00] VITALS: BP 130/80
[2018-03-24] MEDS: CARVEDILOL 12.5 MG (COREG) TABLET PO SCH (08:23)
[2018-03-24] MEDS: NS IV 1000 ML 1,000 ML IV SCH (08:26)
[2018-03-24] MEDS ORDERED: ASPIRIN E.C. 81 MG (ECOTRIN) TAB PO SCH (09:00)
[2018-03-24] MEDS ORDERED: HCTZ PO SCH (09:00)
[2018-03-24] MEDS ORDERED: amLODIPine 10 MG (NORVASC) TAB PO SCH (09:00)
[2018-03-24] MEDS ORDERED: LOSARTAN PO SCH (09:00)
[2018-03-24] MEDS ORDERED: ASPIRIN 325 MG (5 GR) TABLET PO SCH (09:00)
[2018-03-24] MEDS ORDERED: HYDROCHLOROTHIAZIDE 25 MG (HCTZ) TAB PO SCH (09:00)
[2018-03-24] MEDS ORDERED: ATOR10TA66 PO (09:56)
--- NOTE | 2018-03-24 10:28 | Cardiology Progress Note ---
Cardiology SOAP Progress Note Subjective: No chest pain. Objective: I&O/Vital Signs 03/24/18 03/24/18 03/24/18 03/24/18 00:00 01:00 01:00 04:00 Temp 99.3 99.3 Pulse 57 72 44 60 Resp 24 20 B/P (MAP) 144/71 (95) 153/75 (101) Pulse Ox 98 96 O2 Delivery Room Air Room Air 03/24/18 08:00 Temp 98.2 Pulse 61 Resp 20 B/P (MAP) 130/80 (97) Pulse Ox 95 O2 Delivery Room Air 03/24/18 00:00 Intake Total 1410 ml Output Total 1450 ml Balance -40 ml Weight (Pounds): 329 Weight (Ounces): 1.9 Weight (Calculated Kilograms): 149.997479 Side: right Groin site without hematoma: Yes Constitutional: appears stated age, AAO x 3; No apparent distress; well- developed, well-nourished Respiratory: No accessory muscle use, No respiratory distress, No chest tender , No chest expansion is symmetric; chest is bilaterally symmetric; No lungs clear to percussion; lungs clear to auscultation; No crackles, No rhonchi, No rales, No stridor, No wheezing, No pleural rub, No other Cardiovascular: regular rate-rhythm; No irregularly irregular, No extra beats, No parasternal heave is noted, No JVD, No edema, No bradycardia, No tachycardia , No point of maximal impulse, No cardiac thrills are palpable; S1 and S2; No gallop/S3, No gallop/S4, No diastolic murmur, No systolic murmur, No friction rub, No click, No other Gastrointestional: No tender, No soft, No round, No distended, No pulsatile mass, No organomegaly, No guarding, No rebound, No tenderness, No hernia, No mass, No audible bowel sounds, No abnormal bowel sounds, No abdominal bruits, No spleenomegaly, No other Extremities: No normal range of motion, No non-tender, No normal inspection, No pedal edema, No calf tenderness, No normal capillary refill, No pelvis stable , No calf tenderness, No inflammation, No pedal edema, No slow capillary refill , No swelling, No other, No abrasion, No clubbing, No cyanosis, No ecchymosis, No laceration, No no lower extremity edema bilateral, No significant edema, No tenderness, No wound Neurologic/Psychiatric: no motor/sensory deficits, alert, normal mood/affect, oriented x 3, power is 5/5 both on sides Skin: No normal color, No warm/dry, No cyanosis, No cool, No diaphoresis, No damp, No ecchymosis, No jaundice, No mottled, No pallor, No rash, No tattoos/ piercings, No ulcerations, No rash on exposed areas, No ulcerations on exposed areas, No other A/P: Assessment/Dx: Unstable angina, Positive D dimer, Pulmonary nodule Plan: Unstable angina. Troponin 2 is negative. EKG does not show any significant ST -T wave abnormalities. Patient did have recurrent chest pain overnight which resolved with nitroglycerin. Coronary angiography done yesterday shows patent epicardial coronary arteries. Normal LV function. Radial site normal today. Can be discharged to follow-up with Dr. Estrada. Echocardiogram showed normal LV function. Positive DDimer- CTA negative. Pulmonary nodule - Follow up with CT. Thank you for your consultation. Please call me if you have any questions. Jose Henderson MD, FACP, FACC, FSCAI, FHRS, CCDS Interventional Cardiology Cardiac Electrophysiology Vascular Medicine and Endovascular Interventions Clinical Quality Measures AMI/AHF: ASA po Prior to arrival: Yes (Pt took 81mg Baby Aspirin) Zohreh HENDERSON MD Mar 24, 2018 10:27 am
== END 2018-03-24 10:55 | disposition home or self-care (01) ==
LOC: ER 11:56 → 4TH 15:08 → UNDOADMOB 15:08 → 4TH 16:15 → CATH 16:15 → UNDODISOB 03-24 10:55
PROVIDERS: ATTEND Internal Medicine
DX: I20.0 Unstable angina (principal); R91.8 Other nonspecific abnormal finding of lung field; R07.9 Chest pain, unspecified; G47.33 Obstructive sleep apnea (adult) (pediatric); Z87.891 Personal history of nicotine dependence; I10 Essential (primary) hypertension; Z87.442 Personal history of urinary calculi; E66.01 Morbid (severe) obesity due to excess calories; Z68.41 Body mass index [BMI] 40.0-44.9, adult
CPT/HCPCS: 36221; 36415; 71046; 71275; 80053; 80061; 83735; 83874; 84484; 85025; 85379; 85610; 85730; 93005; 93041; 93458; G0378

== ENCOUNTER → 2018-08-30 | Outpatient (CLI) | payer BC ==
[~2018-08-30] MED LIST changes: +AMLO10TA7 PO; +ASPI-586 PO; +ATOR10TA66 PO; +CARV12.53 PO; +LOSA1TAB23 PO; -RECEIVED CONTRAST (Hold Metformin) IV SCH
== END ==
LOC: CARD 13:47
PROVIDERS: ATTEND Physician Assistant
DX: R07.89 Other chest pain (principal); R00.1 Bradycardia, unspecified; I10 Essential (primary) hypertension; G47.33 Obstructive sleep apnea (adult) (pediatric); I34.0 Nonrheumatic mitral (valve) insufficiency
CPT/HCPCS: 93306